=== PATIENT | female | born 1960 | race Caucasian/White ===

== ENCOUNTER → 2017-11-28 11:34 | Outpatient (CLI) | payer MEDICARE, SELFPAY ==
[2017-11-28 13:22] LABS: Basophils % 0.5 % (0.1-2.0); Eosinophils # 0.2 K/mm3 (0.0-0.4); Eosinophils % 2.8 % (0.1-12.0); Hematocrit 42.7 % (37.0-47.0); Hemoglobin 13.6 g/dL (12.2-16.2); Lymphocytes # 1.6 K/mm3 (0.7-4.5); Lymphocytes % 26.4 K/mm3 (10-50); Mean Corpuscular HGB Conc 31.9 g/dL (31.8-35.4); Mean Corpuscular Hemoglobin 29.8 pg (27.0-31.2); Mean Corpuscular Volume 93.4 fl (81-99); Mean Platelet Volume 6.9 fl (7.4-10.4); Monocytes # 0.3 K/mm3 (0.1-1.0); Monocytes % 5.5 % (1.7-9.3); Neutrophils # 3.8 K/mm3 (1.8-7.8); Neutrophils % 64.8 % (37.0-80.0); Platelet Count 283 K/mm3 (142-424); Red Blood Count 4.57 M/mm3 (4.20-5.40); Red Cell Distribution Width 12.8 % (11.5-17.5); White Blood Count 5.9 K/mm3 (4.8-10.8)
[2017-11-28 14:19] LABS: Alanine Aminotransferase 23 U/L (12-78); Albumin Level 3.8 gm/dL (3.4-5.0); Albumin/Globulin Ratio 1.3 (1.1-1.8); Alkaline Phosphatase 114 U/L (46-116); Anion Gap 9.7 mEq/L (5-15); Aspartate Amino Transferase 16 U/L (15-37); Bilirubin,Total 0.4 mg/dL (0.2-1.0); Blood Urea Nitrogen 9 mg/dL (7-18); Calcium 8.7 mg/dL (8.5-10.1); Carbon Dioxide 33 mmol/L (21.0-32.0); Chloride 103 mmol/L (98-107); Chol/HDL Ratio 3.8 (1-3.5); Cholesterol 248 mg/dL (140-200); Creatinine,Serum 0.93 mg/dL (0.55-1.02); Estimated Glomerular Filt Rate 63 ml/min (>60); GFR (African American) 76 ML/MIN (>60); Globulin 2.9 gm/dl (1.3-3.2); Glucose 93 mg/dL (74-106); HDL Cholesterol 66 mg/dL (29-89); LDL Cholesterol 147 mg/dL (0-130); Potassium 4.7 mmoL/L (3.5-5.1); Sodium 141 mmol/L (136-145); Total Protein,Serum 6.7 gm/dL (6.4-8.2); Triglycerides 176 mg/dL (30-200); VLDL Cholesterol 35 mg/dL (0-40)
[2017-11-29 18:30] LABS: Vitamin B12 414 pg/mL (232-1245); Vitamin D 25 Hydroxy 50.2 ng/mL (30.0-100.0)
== END ==
PROVIDERS: PCP Nurse Practitioner Family; Visit Provider Nurse Practitioner Family
DX: Z00.00 Encounter for general adult medical examination without abnormal findings (principal); R53.83 Other fatigue
CPT/HCPCS: 36415; 80053; 80061; 82607; 82652; 84443; 85025

== ENCOUNTER → 2019-02-19 07:30 | Outpatient (CLI) | payer MEDICARE, OTHER, SELFPAY ==
[2019-02-19 14:11] LABS: Basophils % 0.5 % (0.1-2.0); Eosinophils # 0.2 K/mm3 (0.0-0.4); Eosinophils % 2.7 % (0.1-12.0); Hemoglobin 14.5 g/dL (12.2-16.2); Lymphocytes # 1.9 K/mm3 (0.7-4.5); Lymphocytes % 31.3 % (10-50); Mean Corpuscular Hemoglobin 30.8 pg (27.0-31.2); Mean Corpuscular Volume 93.4 fl (81-99); Monocytes # 0.5 K/mm3 (0.1-1.0); Neutrophils # 3.4 K/mm3 (1.8-7.8); Neutrophils % 57.5 % (37.0-80.0); Platelet Count 332 K/mm3 (142-424); Red Blood Count 4.71 M/mm3 (4.20-5.40); Red Cell Distribution Width 12.8 % (11.5-17.5)
[2019-02-19 14:35] LABS: Albumin Level 3.9 gm/dL (3.4-5.0); Albumin/Globulin Ratio 1.3 (1.1-1.8); Anion Gap 12.4 mEq/L (5-15); Aspartate Amino Transferase 12 U/L (15-37); Bilirubin,Total 0.7 mg/dL (0.2-1.0); Blood Urea Nitrogen 15 mg/dL (7-18); Calcium 8.9 mg/dL (8.5-10.1); Carbon Dioxide 27 mmol/L (21.0-32.0); Chloride 105 mmol/L (98-107); Chol/HDL Ratio 3.7 (1-3.5); Cholesterol 238 mg/dL (140-200); Creatinine,Serum 1.01 mg/dL (0.55-1.02); Estimated Glomerular Filt Rate 56 ml/min (>60); GFR (African American) 68 ML/MIN (>60); Globulin 2.9 gm/dl (1.3-3.2); Glucose 95 mg/dL (74-106); HDL Cholesterol 65 mg/dL (29-89); LDL Cholesterol 161 mg/dL (0-130); Potassium 4.4 mmoL/L (3.5-5.1); Sodium 140 mmol/L (136-145); Total Protein,Serum 6.8 gm/dL (6.4-8.2); Triglycerides 60 mg/dL (30-200); VLDL Cholesterol 12 mg/dL (0-40)
[2019-02-19 14:49] LABS: Alanine Aminotransferase 19 U/L (12-78); Alkaline Phosphatase 112 U/L (46-116)
== END ==
PROVIDERS: PCP Internal Medicine Adolescent Medicine; Visit Provider Internal Medicine Adolescent Medicine
DX: Z00.00 Encounter for general adult medical examination without abnormal findings (principal); Z85.528 Personal history of other malignant neoplasm of kidney; Z79.899 Other long term (current) drug therapy
CPT/HCPCS: 36415; 80053; 80061; 85025

== ENCOUNTER → 2019-05-03 13:57 | Outpatient (CLI) | payer MEDICARE, OTHER, SELFPAY ==
--- NOTE | 2019-05-03 14:06 | XR_ITS ---
XR ankle wt bearing LT min 3V HISTORY: ITS.REASON: pain ORDERING PHYSICIAN: Mine Dominguez DPM PATIENT AGE: 58 years Comparison: None FINDINGS: Mild hypertrophic changes are present at the distal aspect of the medial malleolus and at the distal fibula. No fracture or dislocation. IMPRESSION: Mild degenerative changes
--- NOTE | 2019-05-03 14:06 | XR_ITS ---
XR ankle wt bearing RT min 3V HISTORY: ITS.REASON: pain ORDERING PHYSICIAN: Mine Dominguez DPM PATIENT AGE: 58 years Comparison: None FINDINGS: No fracture or dislocation. No lytic or blastic change. There is normal mineralization.. The joint spaces are well-preserved. No significant degenerative/arthritic changes. No erosive changes evident. There is a prominent posterior talar process could result in impingement symptomatology IMPRESSION: Prominent posterior talar process otherwise negative
--- NOTE | 2019-05-03 14:06 | XR_ITS ---
XR foot wt bearing LT 3V HISTORY: ITS.REASON: pain ORDERING PHYSICIAN: Mine Dominguez DPM PATIENT AGE: 58 years COMPARISON: None FINDINGS: There are mild osteoarthritic changes of the first metatarsal phalangeal joint with mild prominence of the soft tissues and mild bony hypertrophy at the distal aspect of the first metatarsal. Mild hypertrophy of the talonavicular joint dorsally. No fracture or dislocation. 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
--- NOTE | 2019-05-03 14:06 | XR_ITS ---
XR foot wt bearing RT 3V HISTORY: ITS.REASON: pain ORDERING PHYSICIAN: Mine Dominguez DPM PATIENT AGE: 58 years COMPARISON: None FINDINGS: There are mild osteoarthritic changes at the first metatarsophalangeal joint. No fracture or dislocation evident. There is a prominent posterior talar process which is nonspecific but can result in posterior ankle impingement. Mild hypertrophic changes involve the navicular IMPRESSION: 1. No acute finding. 2. Mild degenerative changes with prominent posterior talar process noted
== END ==
PROVIDERS: PCP Internal Medicine Adolescent Medicine; Visit Provider Podiatrist
DX: M79.672 Pain in left foot (principal); M79.671 Pain in right foot
CPT/HCPCS: 73610; 73630

== ENCOUNTER → 2019-06-04 15:39 | Outpatient (CLI) | payer MEDICARE, OTHER, SELFPAY ==
[2019-06-04 16:06] LABS: Basophils % 0.2 % (0.1-2.0); Eosinophils # 0.1 K/mm3 (0.0-0.4); Eosinophils % 1.3 % (0.1-12.0); Hematocrit 43.6 % (37.0-47.0); Lymphocytes % 30.9 % (10-50); Mean Corpuscular HGB Conc 32.1 g/dL (31.8-35.4); Mean Corpuscular Hemoglobin 30.8 pg (27.0-31.2); Mean Corpuscular Volume 95.9 fl (81-99); Monocytes # 0.4 K/mm3 (0.1-1.0); Neutrophils # 3.9 K/mm3 (1.8-7.8); Neutrophils % 61.6 % (37.0-80.0); Platelet Count 323 K/mm3 (142-424); Red Blood Count 4.54 M/mm3 (4.20-5.40); Red Cell Distribution Width 13.3 % (11.5-17.5); White Blood Count 6.4 K/mm3 (4.8-10.8)
[2019-06-04 20:45] LABS: Alanine Aminotransferase 25 U/L (12-78); Albumin Level 3.9 gm/dL (3.4-5.0); Albumin/Globulin Ratio 1.4 (1.1-1.8); Alkaline Phosphatase 99 U/L (46-116); Anion Gap 11.5 mEq/L (5-15); Aspartate Amino Transferase 18 U/L (15-37); Bilirubin,Total 0.7 mg/dL (0.2-1.0); Blood Urea Nitrogen 11 mg/dL (7-18); Calcium 9.2 mg/dL (8.5-10.1); Carbon Dioxide 32 mmol/L (21.0-32.0); Chloride 103 mmol/L (98-107); Creatinine,Serum 1.01 mg/dL (0.55-1.02); Estimated Glomerular Filt Rate 56 ml/min (>60); Free Thyroxine Index 2.9 ug/dL (5.93-13.13); GFR (African American) 68 ML/MIN (>60); Globulin 2.8 gm/dl (1.3-3.2); Glucose 78 mg/dL (74-106); Potassium 4.5 mmoL/L (3.5-5.1); Sodium 142 mmol/L (136-145); T4 (Thyroxine) 8.5 ug/dl (4.7-13.3); Thyroid Stimulating Hormone 0.67 uIU/ml (0.358-3.740); Total Protein,Serum 6.7 gm/dL (6.4-8.2); Triiodothryronine (T3) Uptake 34 % (31-39)
== END ==
PROVIDERS: Visit Provider Internal Medicine Adolescent Medicine
DX: R63.4 Abnormal weight loss (principal); R05 Cough; R10.84 Generalized abdominal pain; Z86.11 Personal history of tuberculosis
CPT/HCPCS: 36415; 80053; 84436; 84443; 84479; 85025

== ENCOUNTER → 2019-06-07 09:38 | Outpatient (CLI) | payer MEDICARE, OTHER, SELFPAY ==
--- NOTE | 2019-06-07 09:56 | CT_ITS ---
CT chest w con HISTORY: 30 LB weight loss, history of kidney cancer, cough, pain, ITS.REASON: WEIGHT LOSS,COUGH,H/O TB ORDERING PHYSICIAN: Tim Garcia MD PATIENT AGE: 58 years COMPARISON: None Technique: Contrast Used:75ml Optiray 350 Axial images were obtained. Sagittal, and coronal reformatted images are also generated and reviewed. All CT scans at the facility use one or more dose reduction, viz: automated exposure control, ma/kV adjustment per patient size (including targeted exams where dose is matched to indication, i.e. head), or iterative reconstruction technique. FINDINGS: No mediastinal or hilar mass or adenopathy. No evidence of aortic aneurysm, dissection, or central pulmonary embolus. There are mild centrilobular emphysematous changes. Scattered areas of scarring are noted. There is a 5 mm noncalcified nodule along the right minor fissure anteriorly. 3 mm noncalcified nodule right middle lobe laterally. There are atelectatic or fibrotic changes in the right lung base posteriorly. Minimal nodularity noted along the right major fissure There is a 7 mm nodule along the left major fissure superiorly with somewhat ill-defined margins. There is a calcified granuloma in the left lower lobe superior segment and within the lingula. No effusions or infiltrates. No acute bony anomalies. IMPRESSION: 1. Centrilobular emphysema. 2. There are scattered bilateral pulmonary nodular opacities the largest along the left major fissure superiorly at 7 mm. Probably benign. Recommend 6 month follow-up to confirm stability in this high-risk patient.
--- NOTE | 2019-06-07 09:56 | CT_ITS ---
CT abdomen pelvis wo/w con CLINICAL INDICATION: 30 pound weight loss, history of kidney cancer with nephrectomy. ITS.REASON: WEIGHT LOSS,ABD PAIN ORDERING PHYSICIAN: Tim Garcia MD PATIENT AGE: 58 years COMPARISON: None TECHNIQUE: Contrast Used:75ml Optiray 350 Oral Contrast: 450ml Redicat Axial images obtained without and with contrast with sagittal and coronal reformats. All CT scans at the facility use one or more dose reduction, viz: automated exposure control, ma/kV adjustment per patient size (including targeted exams where dose is matched to indication, i.e. head), or iterative reconstruction technique. FINDINGS: There are no previous exams available for comparison. Prior cholecystectomy. There is a 4 mm isodensity in the left hepatic lobe superiorly and an additional 5 mm isodensity left hepatic lobe anteriorly. These are nonspecific and too small to characterize. There is mild prominence of both intra and extrahepatic biliary radicals. Common bile duct is mildly prominent measuring up to 9 mm. Pancreatic duct is also slightly prominent at 3.5 mm. There is some mild nodularity along the axillary region of the second portion of the duodenum. This is nonspecific and may be related to nondistention. A nodular lesion here is however not excluded. Spleen and adrenal glands are unremarkable. There is thickening of the gastric wall which may be due to nondistention or gastritis. Prior left nephrectomy. There is some soft tissue prominence to the left lateral aspect of the abdominal aorta near the nephrectomy bed. This measures 1.7 cm and could be related to some small lymph nodes or even postsurgical change. There is some calcification/surgical clips in this area as well. The right kidney has an unremarkable appearance. No intestinal obstruction or free air. No evidence of appendicitis or diverticulitis. Urinary bladder has an unremarkable appearance. No obvious pelvic mass or abnormal fluid collection. Degenerative disc disease is present at L3-L4 with sclerosis of the endplates along the right lateral aspect with mild lumbar scoliosis along with slight reversal of the lumbar lordosis. IMPRESSION: 1. Prior left nephrectomy. There is some nodularity noted in the retroperitoneum on the left which could be due to mildly prominent lymph nodes. Residual recurrent neoplasm is not excluded. If the patient has old films it is recommended they be submitted for comparison. 2. Prior cholecystectomy. There is mild prominence of the biliary tree. There is some nodularity at the ampulla region of the duodenum medially. A mass of the ampulla is not excluded. Consider MRI of the abdomen without and with contrast with MRCP for further evaluation. Old films would be helpful if available.
== END ==
PROVIDERS: PCP Internal Medicine Adolescent Medicine; Visit Provider Internal Medicine Adolescent Medicine
DX: R63.4 Abnormal weight loss (principal); R05 Cough; R10.84 Generalized abdominal pain; Z86.11 Personal history of tuberculosis
CPT/HCPCS: 71260; 74178; Q9967

== ENCOUNTER → 2019-06-09 08:45 | Outpatient (CLI) | payer MEDICARE, OTHER, SELFPAY ==
[2019-06-14 10:35] LABS: QuantiFERON-TB Gold Plus Positive (Negative)
== END ==
PROVIDERS: PCP Internal Medicine Adolescent Medicine; Visit Provider Internal Medicine Adolescent Medicine
DX: R63.4 Abnormal weight loss (principal); R10.84 Generalized abdominal pain; R05 Cough; Z86.11 Personal history of tuberculosis
CPT/HCPCS: 36415; 86480

== ENCOUNTER → 2019-06-10 08:43 | Outpatient (CLI) | payer MEDICARE, OTHER, SELFPAY ==
--- NOTE | 2019-06-10 09:04 | MR_ITS ---
MR abdomen wo/w con, MR 3-d myelogram/MRCP INDICATION: ITS.REASON: PANCREATIC MASS, 30 pound weight loss, history of renal cancer ORDERING PHYSICIAN: Tim Garcia MD PATIENT AGE: 58 years COMPARISON: 06/07/2019 TECHNIQUE: Multiplanar multiecho sequences are performed without and with contrast with dynamic postcontrast enhanced images. MRCP protocol also utilized. FINDINGS: There is a moderate degree of motion artifact which does somewhat obscure fine detail. Previous CT scan demonstrated prominence of the biliary tree both intra and extrahepatic biliary radicals with a questionable lesion at the annular portion of the common bile duct.. Postcholecystectomy changes. The liver, spleen, right kidney, and adrenal glands have an unremarkable appearance. There are solitary right kidney with postnephrectomy changes on the left. Some nodularity once again noted in the left periaortic region suggesting small lymph nodes.. No obvious pancreatic mass. There is mild degree of motion artifact somewhat obscuring fine detail. There is prominence of the common hepatic duct measuring up to 11 mm and common bile duct measuring up to 12 mm. The common bile duct however does taper distally. The pancreatic duct is upper limits of normal at 3 mm. No obvious nodularity noted at the descending portion of the duodenum. IMPRESSION: 1. No obvious pancreatic mass. 2. Status post cholecystectomy with mild dilatation of the intrahepatic biliary radicals as well as prominent common bile duct and common hepatic duct. Pancreatic duct is upper limits of normal. No obvious retained ductal stones or malignant appearing strictures of the common bile duct. There was some question of nodularity along the medial aspect of the second portion of the duodenum on the CT scan not redemonstrated on MRI. 3. There is some mild nodularity in the left periaortic region suggesting small lymph nodes as seen on the CT scan
[2019-06-10 09:13] LABS: Blood Urea Nitrogen 14 mg/dL (7-18); Creatinine,Serum 1.02 mg/dL (0.55-1.02); Estimated Glomerular Filt Rate 56 ml/min (>60); GFR (African American) 68 ML/MIN (>60)
[2019-06-10 10:13] LABS: Alanine Aminotransferase 25 U/L (12-78); Albumin Level 4.2 gm/dL (3.4-5.0); Alkaline Phosphatase 117 U/L (46-116); Amylase 65 U/L (25-115); Aspartate Amino Transferase 18 U/L (15-37); Bilirubin,Direct 0.2 mg/dL (0.0-0.2); Bilirubin,Indirect 0.4 mg/dL (0.0-0.9); Bilirubin,Total 0.6 mg/dL (0.2-1.0); Lipase 150 u/L (73-393); Total Protein,Serum 7.5 gm/dL (6.4-8.2)
[2019-06-11 12:36] LABS: CA 19-9 6 U/mL (0-35)
== END ==
PROVIDERS: Nurse Practitioner Family; PCP Internal Medicine Adolescent Medicine; Visit Provider Internal Medicine Adolescent Medicine
DX: G89.3 Neoplasm related pain (acute) (chronic) (principal)
CPT/HCPCS: 36415; 74183; 76376; 80076; 82150; 82565; 83690; 84520; 86316; A9576

== ENCOUNTER → 2019-06-14 12:41 | Outpatient (POV) | payer MEDICARE, OTHER, SELFPAY | PROVIDERS: PCP Internal Medicine Adolescent Medicine; Visit Provider Nurse Practitioner Family | DX: Z00.00 Encounter for general adult medical examination without abnormal findings (principal) ==

== ENCOUNTER → 2019-09-17 08:10 | Outpatient (CLI) | payer MEDICARE, OTHER, SELFPAY ==
[2019-09-17 08:37] LABS: Blood Urea Nitrogen 13 mg/dL (7-18); Creatinine,Serum 0.93 mg/dL (0.55-1.02); Estimated Glomerular Filt Rate 62 ml/min (>60); GFR (African American) 75 ML/MIN (>60)
--- NOTE | 2019-09-17 08:55 | MR_ITS ---
PROCEDURE: MR FOOT LT WO/W CON CLINICAL INDICATION: left foot pain, surgical planning Posterior tibial tendon dysfunction, inflammation, tendinopathy COMPARISON: 05/03/2019 TECHNIQUE: Routine multiplanar multi echo sequences are performed without and with gadolinium enhancement. FINDINGS: There is mild hallux valgus with osteoarthritic change of the 1st MTP joint. No evidence of tear of the posterior tibialis tendon. There is a type 1 os navicularis with a portion of the tendon inserting on the os navicular. There is a small amount fluid between the os in the body proper of the navicular. Slight increased T2 signal is also present within the os navicular. There is mild amount of fluid at the tendon sheath of the flexor digitorum longus and posterior tibialis just superior to the level of the ankle joint.. There is a moderate amount of fluid around the flexor hallucis longus at the level of the ankle joint. Fluid is also present along the posterior aspect of the ankle joint. The Achilles tendon, and peroneal tendons have an unremarkable appearance. The tibial fibular ligaments and talofibular ligaments and deltoid ligament has an unremarkable appearance. Small amount of fluid is present along the talonavicular joint anteriorly and there is a small amount fluid in the anterior aspect of the ankle joint. Mild osteoarthritic changes are present at the talonavicular joint. There is mild pes planus. IMPRESSION: 1. Mild hallux valgus with osteoarthritis of the 1st MTP joint. Osteoarthritic changes are present at the talonavicular joint. There is a small amount fluid in the ankle joint. 2. There is slight increased T2 signal of the os naviculare with a small amount fluid between the os and the body proper of the navicular. These findings could indicate os navicular syndrome however, these findings are very subtle and could even be incidental findings. Please correlate with clinical parameters.. 3. Fluid at the tendon sheath of the posterior tibialis and flexor digitorum longus as well as the flexor hallucis longus indicating tenosynovitis. Dictated by: Javier Arora MD 09/18/2019 06:45 Electronically signed by Javier Arora MD in [place] 09/19/2019 08:14
== END ==
PROVIDERS: PCP Internal Medicine Adolescent Medicine; Visit Provider Podiatrist
DX: M20.11 Hallux valgus (acquired), right foot (principal); M20.12 Hallux valgus (acquired), left foot; M20.5X2 Other deformities of toe(s) (acquired), left foot; M21.41 Flat foot [pes planus] (acquired), right foot; M21.42 Flat foot [pes planus] (acquired), left foot; M76.822 Posterior tibial tendinitis, left leg; M79.671 Pain in right foot; M79.672 Pain in left foot
CPT/HCPCS: 36415; 73720; 82565; 84520; A9576

== ENCOUNTER 2019-12-20 16:30 | Outpatient (RCR) | payer MEDICARE, OTHER, MEDICAID, SELFPAY ==
--- NOTE | 2019-12-06 17:42 | [facility].PTOPEV ---
PT Outpatient Evaluation Rehab PT Outpatient Evaluation Start: 12/06/19 17:04 Freq: Status: Active Protocol: Document 12/06/19 17:04 PDESEROUX (Rec: 12/06/19 17:42 PDESEROUX [id number]) Electronically Signed By Manoj Berg, PT 12/06/19 17:04 Outpatient Therapy Subjective History Subjective History Pt. is a 58 year old female who presents to outpatient PT for complaints of chronic w/ acute exacerbations and intermittent LB and LLE P! of insidious onset 6 months ago. Pt. reports having two exacerbations during the 6 month period where symptoms shot down my left leg. Pt. reports the most recent exacerbation less than 2 weeks ago prompted pt. to seek her PCP. Pt. currently reports almost complete symptom relief post steroid pack(Prednisone per pt. report), but is afraid it will come back. Recent diagnostic imaging positive for partial herniated discs and DDD per pt. report. Pt. reported radicular symptoms inferior to L knee, but not below. Current medications include Celexa, Remeron, Crestor, and Gabapentin. PMH includes fractured L3/L4/L5 in 1984, lumbar DDD, section, Nephrectomy, kidney and bladder cancer, and Hypercholesterolemia. Chief Complaint Pain,Paresthesia Symptom Type Ache,Sharp,Burning,Numbness Symptoms Relieved By Rest/Positioning,Heat Symptoms Aggravated By Prone,Bending/Stooping, Physical Activity,Twisting, Walking,Lifting Prior Functional Limitations None Current Functional Limitations Lifting,Housework,Squatting, Recreation Activity,Walking, Balance Symptom Description Intermittent Level of pain today (0-10) 0 Pain scale - at its best (0-10) 0 Pain scale - at its worst (0-10) 10 Lumbopelvic Eval Posture Thoracic Spine Po
== END 2020-01-03 17:00 | disposition home or self-care (01) ==
LOC: PT.CARL 16:30
PROVIDERS: PCP Internal Medicine Adolescent Medicine; Visit Provider Internal Medicine Adolescent Medicine
DX: M51.36 Other intervertebral disc degeneration, lumbar region (principal)
CPT/HCPCS: 97110; 97163

== ENCOUNTER → 2020-01-31 09:02 | Outpatient (CLI) | payer MEDICARE, OTHER, SELFPAY ==
--- NOTE | 2020-01-31 09:11 | XR_ITS ---
PROCEDURE: XR HAND RT MIN 3V CLINICAL INDICATION: finger surgery 01/27/2020, xrays in splint COMPARISON: XR HAND RT MIN 3V from 01/27/2020 FINDINGS: No fracture or dislocation. There has been reduction of previous dorsal dislocation at the 5th distal interphalangeal joint. Small bone density consistent with avulsion fracture fragment is seen displaced into the radial soft tissues. There is mild multi joint osteoarthritis throughout the hand. No lytic or blastic change. There is normal mineralization. IMPRESSION: Successful reduction of previous dislocation at distal interphalangeal joint 5th digit. Small avulsion fracture fragment remains displaced in the adjacent soft tissues. Dictated by: Keith Kwan 01/31/2020 11:12 Electronically signed by Keith Kwan in [facility] 01/31/2020 11:12
== END ==
PROVIDERS: PCP Internal Medicine Adolescent Medicine; Visit Provider Orthopaedic Surgery
DX: S63.29 Dislocation of distal interphalangeal joint of finger; S61.209A Unspecified open wound of unspecified finger without damage to nail, initial encounter
CPT/HCPCS: 73130

== ENCOUNTER → 2020-02-21 08:52 | Outpatient (CLI) | payer MEDICARE, OTHER, SELFPAY ==
--- NOTE | 2020-02-21 08:57 | XR_ITS ---
PROCEDURE: XR FINGER RT MIN 2V CLINICAL INDICATION: sp open reduction DIP dislocation, sx 01/27/2020 COMPARISON: FINL1 [id number] ([id number] VIEWS from 05/21/2016 XR FINGER RT MIN 2V from 01/27/2020 XR HAND RT MIN 3V from 01/27/2020 XR HAND RT MIN 3V from 01/31/2020 FINDINGS: There is minimal calcification noted along the radial aspect of the DIP joint of the 5th finger which could be due to small avulsion fracture. This is not significantly changed. No evidence of dislocation. IMPRESSION: Normal alignment. No evidence of dislocation. No change possible small avulsion fracture at the DIP joint radially Dictated by: Javier Arora MD 02/21/2020 09:41 Electronically signed by Javier Arora MD in [facility] 02/21/2020 09:41
== END ==
PROVIDERS: PCP Internal Medicine Adolescent Medicine; Visit Provider Orthopaedic Surgery
DX: S63.29 Dislocation of distal interphalangeal joint of finger; Z09 Encounter for follow-up examination after completed treatment for conditions other than malignant neoplasm; S61.209A Unspecified open wound of unspecified finger without damage to nail, initial encounter
CPT/HCPCS: 73140

== ENCOUNTER → 2020-04-07 07:06 | Outpatient (CLI) | payer MEDICARE, OTHER, SELFPAY ==
[2020-04-07 09:04] LABS: Chloride 104 mmol/L (98-107); Potassium 4.6 mmoL/L (3.5-5.1); Sodium 139 mmol/L (136-145)
[2020-04-07 09:07] LABS: Alanine Aminotransferase 9 U/L (12-78); Albumin Level 3.9 g/dl (3.5-5.0); Albumin/Globulin Ratio 1.5 (1.1-1.8); Alkaline Phosphatase 98 U/L (38-126); Anion Gap 5.6 mEq/L (5-15); Aspartate Amino Transferase 21 U/L (14-36); Bilirubin,Total 0.9 mg/dl (0.2-1.3); Blood Urea Nitrogen 13 mg/dl (7-17); Carbon Dioxide 34 mmol/L (22.0-30.0); Cholesterol 122 mg/dl (140-200); Estimated Glomerular Filt Rate 64 ml/min (>60); GFR (African American) 78 ML/MIN (>60); Globulin 2.6 g/dL (1.3-3.2); Total Protein,Serum 6.5 g/dl (6.3-8.2); Triglycerides 61 mg/dl (30-150); VLDL Cholesterol 12 mg/dL (0-40)
[2020-04-07 09:08] LABS: Calcium 9.2 mg/dl (8.4-10.2); Chol/HDL Ratio 1.9 (1-3.5); Glucose 90 mg/dl (74-100); HDL Cholesterol 64 mg/dl (40-60)
[2020-04-07 09:18] LABS: Direct LDL Cholesterol 60.55 mg/dL (100-129)
== END ==
PROVIDERS: Visit Provider Internal Medicine Adolescent Medicine
DX: E78.2 Mixed hyperlipidemia (principal)
CPT/HCPCS: 36415; 80053; 80061

== ENCOUNTER → 2020-08-18 08:01 | Outpatient (CLI) | payer MEDICARE, OTHER, SELFPAY ==
--- NOTE | 2020-08-18 | CT_ITS ---
PROCEDURE: CT LUNG SCREENING CLINICAL INDICATION: NICOTINE DEP current smoker 40 pack year smoking history copd hx kidney ca no prior LDLS prior chest w, 06/07/19 COMPARISON: CT ABDWW CT abdomen wo/w con from 06/07/[address] abdomen wo/w con from 06/07/[address] chest w con from 06/07/2019 TECHNIQUE: The exam was performed on a [employer] Speed [address] scanner using 2.90 mGy CTDI. A low dose helical CT CHEST was performed on a multi-detector scanner. All CT scans at the facility use one or more dose reduction, viz: automated exposure control, ma/kV adjustment per patient size (including targeted exams where dose is matched to indication, i.e. head), or iterative reconstruction technique. The LDCT was performed in a facility that meets the criteria for the screening program. Data regarding this exam was submitted to ACR which is an approved registry. The order for this exam indicates that it came as a result of a lung cancer screening counseling shard decision-making visit that included all the elements required of such a visit including smoking cessation. The radiologist interpreting this exam meets the CMS criteria for the LDCT lung cancer screening program. The exam is reported using the Lung-RADS classification scale and reported to the ACR registry. NOTE: This study was performed for the specific purposes of lung cancer screening and is not an alternative to diagnostic chest CT. RADIATION DOSE: CTDI vol(CT dose Index-volume) = 2.90mG DLP (Dose Length Product) = 125.85 mGcm FINDINGS: COPD with centrilobular emphysema. There is a stable fissural nodule in the right minor fissure at 5 mm. Linear density present in the right lung base posteriorly consistent with an area of scarring which is slightly worse compared to the previous exam. There is a 6 mm noncalcified nodule in the left major fissure unchanged. Calcified granuloma is present in the left lower lobe and in the lingula. OTHER FINDINGS: Calcification noted in the retroperitoneum on the left along with the lobular soft tissue density not significantly changed. Prior left-sided nephrectomy. IMPRESSION: Lung-RADS Category 2 Benign Appearance or Behavior Follow-up: Continue annual screening with LDCT in 12 months Dictated by: Javier Arora MD 08/23/2020 16:16 Javier Arora MD in [place] 08/23/2020 16:16
== END ==
PROVIDERS: PCP Internal Medicine Adolescent Medicine; Visit Provider Internal Medicine Adolescent Medicine
DX: Z87.891 Personal history of nicotine dependence (principal); Z12.2 Encounter for screening for malignant neoplasm of respiratory organs

== ENCOUNTER → 2021-01-02 11:08 | Outpatient (CLI) | payer MEDICARE, OTHER, SELFPAY ==
[2021-01-03 11:38] LABS: Basophils % 0.5 % (0.1-2.0); Eosinophils # 0.1 K/mm3 (0.0-0.4); Eosinophils % 1.3 % (0.1-12.0); Hematocrit 40.5 % (37.0-47.0); Hemoglobin 12.7 g/dL (12.2-16.2); Lymphocytes # 2.5 K/mm3 (0.7-4.5); Lymphocytes % 29.4 % (10-50); Mean Corpuscular HGB Conc 31.3 g/dL (31.8-35.4); Mean Corpuscular Hemoglobin 30.5 pg (27.0-31.2); Mean Corpuscular Volume 97.2 fl (81-99); Mean Platelet Volume 8.9 fl (7.4-10.4); Monocytes # 0.8 K/mm3 (0.1-1.0); Monocytes % 8.9 % (1.7-9.3); Neutrophils % 59.9 % (37.0-80.0); Platelet Count 303 K/mm3 (142-424); Red Blood Count 4.17 M/mm3 (4.20-5.40); Red Cell Distribution Width 13.7 % (11.5-17.5); White Blood Count 8.4 K/mm3 (4.8-10.8)
[2021-01-03 13:47] LABS: 25-OH Vitamin D, Total 45.1 ng/mL (30-100)
[2021-01-03 14:57] LABS: Alanine Aminotransferase 18 U/L (12-78); Albumin Level 4.1 g/dl (3.5-5.0); Albumin/Globulin Ratio 1.6 (1.1-1.8); Alkaline Phosphatase 78 U/L (38-126); Anion Gap 9.6 mEq/L (5-15); Aspartate Amino Transferase 32 U/L (14-36); Bilirubin,Total 0.5 mg/dl (0.2-1.3); Blood Urea Nitrogen 14 mg/dl (7-17); Calcium 9.4 mg/dl (8.4-10.2); Carbon Dioxide 29 mmol/L (22.0-30.0); Chloride 104 mmol/L (98-107); Chol/HDL Ratio 2.3 (1-3.5); Cholesterol 145 mg/dl (140-200); Estimated Glomerular Filt Rate 64 ml/min (>60); GFR (African American) 78 ML/MIN (>60); Globulin 2.5 g/dL (1.3-3.2); Glucose 79 mg/dl (74-100); HDL Cholesterol 62 mg/dl (40-60); Potassium 4.6 mmoL/L (3.5-5.1); Sodium 138 mmol/L (136-145); Total Protein,Serum 6.6 g/dl (6.3-8.2); Triglycerides 96 mg/dl (30-150); VLDL Cholesterol 19 mg/dL (0-40)
[2021-01-03 15:08] LABS: Direct LDL Cholesterol 63.98 mg/dL (100-129)
[2021-01-03 15:14] LABS: Free Thyroxine Index 2.7 ug/dL (5.93-13.13); T4 (Thyroxine) 8.2 ug/dl (5.53-11.0); Triiodothryronine (T3) Uptake 33 % (23.5-40.5)
[2021-01-03 15:28] LABS: Thyroid Stimulating Hormone 1.96 uIU/mL (0.465-4.68)
[2021-01-03 15:45] LABS: Vitamin B12 394 pg/mL (239-931)
== END ==
PROVIDERS: Visit Provider Internal Medicine Adolescent Medicine
DX: R63.4 Abnormal weight loss (principal); E78.2 Mixed hyperlipidemia
CPT/HCPCS: 80053; 80061; 82306; 82607; 84436; 84443; 84479; 85025

== ENCOUNTER 2021-05-31 08:58 | Outpatient (CLI) | payer MEDICARE, OTHER, SELFPAY ==
[2021-05-31 10:00] VITALS: BP 108/56; PULSE 61; RESP 18; O2SAT 92
[2021-05-31 11:34] VITALS: BP 106/58; PULSE 72; RESP 16; TEMP 37.1; O2SAT 92
--- NOTE | 2021-05-31 11:34 | PC.NURSE ---
Pt tolerated infusion well. Follow-up monitoring raised no concern. V/S remained WNL. Pt D/C'd home at this time.
== END 2021-05-31 11:35 | disposition home or self-care (01) ==
PROVIDERS: PCP Internal Medicine Adolescent Medicine; Visit Provider Family Medicine
DX: U07.1 COVID-19 (principal)
CPT/HCPCS: 96365

== ENCOUNTER → 2021-07-16 16:02 | Outpatient (CLI) | payer MEDICARE, OTHER, SELFPAY ==
--- NOTE | 2021-07-16 16:03 | MM_ITS ---
PROCEDURE: MM DIG SCREENING MAMM BI W/CAD Digital Breast Tomosynthesis Included CLINICAL INDICATION: SCREENING COMPARISON: No exams were available for comparison TECHNIQUE: Standard CC and MLO images and 3D Tomosynthesis was obtained. R2 CAD reviewed. FINDINGS: The breasts are extremely dense which lowers the sensitivity of mammography. No malignant appearing mass or malignant-appearing microcalcification. Benign-appearing nodular density is present in the left axillary region at 3 mm and may be due to a small lymph node well-circumscribed. There is a benign-appearing calcification in the left axillary region and upper aspect of the left breast. There is mild bilateral skin thickening IMPRESSION: There is mild bilateral skin thickening. This is nonspecific. No convincing evidence of malignancy. BI-RAD Category: 2 Benign Finding FOLLOW-UP: 1 YR 1 Year Follow-up (A letter has been sent to the patient regarding results of the study.) Dictated by: Javier Arora MD 07/27/2021 12:46 Javier Arora MD in [place] 07/27/2021 12:46
== END ==
PROVIDERS: PCP Internal Medicine Adolescent Medicine; Visit Provider Internal Medicine Adolescent Medicine
DX: Z12.31 Encounter for screening mammogram for malignant neoplasm of breast (principal)
CPT/HCPCS: 77063; 77067

== ENCOUNTER → 2021-08-31 07:50 | Outpatient (CLI) | payer MEDICARE, OTHER, SELFPAY ==
--- NOTE | 2021-08-31 07:52 | CT_ITS ---
PROCEDURE: CT LUNG SCREENING CLINICAL INDICATION: H/O NICOTINE DEPENDENCE Smoker half pack for 35 years. COMPARISON: CT CT CHEST W CON from 06/07/[address] ABDOMEN PELVIS WO/W CON from 06/07/2019 MR MR ABDOMEN WO/W CON from 06/10/[address] LUNG SCREENING from 08/18/2020 TECHNIQUE: The exam was performed on a [employer] Speed [address] scanner using 2.90 mGy CTDI. A low dose helical CT CHEST was performed on a multi-detector scanner. All CT scans at the facility use one or more dose reduction, viz: automated exposure control, ma/kV adjustment per patient size (including targeted exams where dose is matched to indication, i.e. head), or iterative reconstruction technique. The LDCT was performed in a facility that meets the criteria for the screening program. Data regarding this exam was submitted to ACR which is an approved registry. The order for this exam indicates that it came as a result of a lung cancer screening counseling shard decision-making visit that included all the elements required of such a visit including smoking cessation. The radiologist interpreting this exam meets the CMS criteria for the LDCT lung cancer screening program. The exam is reported using the Lung-RADS classification scale and reported to the ACR registry. NOTE: This study was performed for the specific purposes of lung cancer screening and is not an alternative to diagnostic chest CT. RADIATION DOSE: CTDI vol(CT dose Index-volume) = 2.90mG DLP (Dose Length Product) = mGcm FINDINGS: There is a 2 millimeter nodule within the lateral segment right middle lobe, stable since 06/07/2019. There is right lower lobe subsegmental atelectasis. There is centrilobular emphysema. Again identified are multiple granulomas in the left upper and lower lobes. There is subsegmental atelectasis in the left lower lobe. No other nodules are identified. There is tracheal calcification. Atherosclerosis. There is scoliosis. Cholecystectomy. Ssince the prior studies, there has been interval development haziness of the intra-abdominal fat in the left upper quadrant of uncertain significance. IMPRESSION: Lung-RADS Category 2 Benign Appearance or Behavior Follow-up: Continue annual annual screening with low-dose lung screening CT. New haziness of the intra-abdominal fat in the left upper quadrant. CT abdomen and pelvis with IV contrast is recommended for further evaluation to exclude intra-abdominal process such as malignancy. Dictated by: Florence Alicea MD 08/31/2021 08:51 Florence Alicea MD in [place] 08/31/2021 08:51
== END ==
PROVIDERS: PCP Internal Medicine Adolescent Medicine; Visit Provider Internal Medicine Adolescent Medicine
DX: Z87.891 Personal history of nicotine dependence (principal); Z12.2 Encounter for screening for malignant neoplasm of respiratory organs
CPT/HCPCS: 71271

== ENCOUNTER → 2022-09-27 14:39 | Outpatient (CLI) | payer MEDICARE, SELFPAY ==
--- NOTE | 2022-09-27 14:43 | CT_ITS ---
FINAL REPORT CLINICAL HISTORY: HX OF NICOTINE DEPENDENCE current smoker 1/2 ppd x40 years COMPARISON: 08/31/2021 FINDINGS: Axial images were obtained from the lung apex to the mid abdomen by computed tomography. Low-dose protocol was utilized. CTDl vol(mGy): 2.90 DLP (mGy-cm): 108.90 FINDINGS: There is no axillary adenopathy. There is no hilar or mediastinal adenopathy. The heart size is normal. There is no pericardial or pleural effusion. Limited images of the upper abdomen are unremarkable. Lung window images demonstrate mild emphysema and mild scarring. There are 2 nodules along the right major fissure measuring up to 3 mm. These appear stable. There is a stable nodule along the left major fissure. There are several calcified granulomas noted. In the anterior right mid lung there is a 5 mm nodule which is stable. There is a 2 mm lateral left lower lobe nodule on image 57 which is apparently new. There is a new lateral right lower lobe nodule measuring 3 mm seen on image 65. IMPRESSION: Lung RADS category 2. Recommend 12 month follow-up low-dose chest CT. Reviewed, Interpreted and Dictated by Landon Davenport III, MD Transcribed by Marycruz Shook Authenticated and [facility]
== END ==
PROVIDERS: PCP Internal Medicine Adolescent Medicine; Visit Provider Internal Medicine Adolescent Medicine
DX: Z87.891 Personal history of nicotine dependence (principal); Z12.2 Encounter for screening for malignant neoplasm of respiratory organs
CPT/HCPCS: 71271

== ENCOUNTER → 2023-07-02 15:16 | Outpatient (CLI) | payer MEDICARE, SELFPAY ==
--- NOTE | 2023-07-02 15:22 | XR_ITS ---
FINAL REPORT CLINICAL HISTORY: Mid to low back pain COMPARISON: None FINDINGS: 3 views of the thoracic spine were obtained. There is no fracture present. There is no malalignment. There is mild anterior osteophyte formation throughout the thoracic spine. 4 views of the lumbosacral spine were obtained. There is 20 degrees of lumbar scoliosis convex to the left. There is advanced disc space narrowing at L3-4. There is reversal of the lumbar lordosis centered at the L3-4 level. IMPRESSION: Degenerative changes without acute process. Reviewed, Interpreted and Dictated by Adan Webster MD Transcribed by Bina Garces Authenticated and [facility]
== END ==
LOC: RAD 15:17
PROVIDERS: PCP Internal Medicine Adolescent Medicine; Visit Provider Internal Medicine Adolescent Medicine
DX: M54.50 Low back pain, unspecified (principal); M47.9 Spondylosis, unspecified
CPT/HCPCS: 72084

== ENCOUNTER → 2023-07-11 08:13 | Outpatient (CLI) | payer MEDICARE, SELFPAY ==
--- NOTE | 2023-07-11 08:22 | MM_ITS ---
PROCEDURE INFORMATION: Exam: MG Bilateral Screening 3D Mammography Exam date and time: 07/11/2023 8:31 AM Age: 62 years old Clinical indication: Screening examination; No personal or family history of breast cancer TECHNIQUE: Imaging protocol: Bilateral Screening tomosynthesis and 2D mammography including computer-aided detection (CAD) when performed. COMPARISON: MG MM DIG SCREENING MAMM BI W/CAD 07/16/2021 4:03 PM FINDINGS: MAMMOGRAPHY: Breast composition: The breasts are extremely dense, which lowers the sensitivity of mammography. Mass: None. Architectural distortion: None. Calcifications: No suspicious calcifications. Asymmetric density: None. Skin thickening: None. Axillary adenopathy: None. IMPRESSION: No mammographic evidence of malignancy. Annual screening is recommended unless otherwise clinically indicated. ASSESSMENT: BI-RADS Category 1: Negative
== END ==
PROVIDERS: PCP Internal Medicine Adolescent Medicine; Visit Provider Internal Medicine Adolescent Medicine
DX: Z12.31 Encounter for screening mammogram for malignant neoplasm of breast (principal)
CPT/HCPCS: 77063; 77067

== ENCOUNTER 2023-09-08 11:56 | Emergency (ER) | payer MEDICARE, SELFPAY ==
[2023-09-08 12:05] VITALS: BP 101/76; PULSE 78; RESP 18; TEMP 36.8; O2SAT 100; BMI 17.1
--- NOTE | 2023-09-08 12:09 | XR_ITS ---
FINAL REPORT CLINICAL HISTORY: smashed index and middle finger in a door COMPARISON: 01/31/2020 FINDINGS: RIGHT HAND Three views demonstrate no acute fracture or dislocation. The visualized joint spaces are normally aligned. There is multijoint degenerative disease, similar to prior exam. The soft tissues are unremarkable. IMPRESSION: No acute bony abnormality. Reviewed, Interpreted and Dictated by Marleny Chiu MD Transcribed by Oliva Elkins Authenticated and [facility]
--- NOTE | 2023-09-08 12:22 | EXP.UTC ---
Discharge Plan Disposition Patient Disposition: Home, Self-Care Condition: Good Prescriptions Prescriptions: No Action rosuvastatin 10 mg tablet 10 mg PO DAILY Qty: 30 Patient Comments: TAKE 1 TABLET BY MOUTH AT BEDTIME ibuprofen 600 mg tablet PO Patient Comments: TAKE 1 TABLET BY MOUTH THREE TIMES DAILY AFTER ondansetron 4 mg tablet,disintegrating 4 mg PO DAILY PRN (Reason: nausea and vomiting) 5 Days Qty: 20 0RF citalopram 40 MG tablet 40 mg PO DAILY gabapentin 800 MG tablet 800 mg PO QID albuterol sulfate 200 PUFFS HFA aerosol inhaler 1 - 2 puffs IH Q6HP PRN (Reason: asthma) mirtazapine 15 mg tablet 15 mg PO DAILY Referrals Follow up/Referrals: Tim Garcia MD [Primary Care Provider] - See instructions Activity Restrictions/Add. Instructions Additional Instructions/Restrictions: Suture instructions: ?You have required stitches today. Please read the following instructions so you know how to care for them: ?1. Keep wound area dry for the first 24 hours. 2?? May clean gently with mild soap and water, after 48 hours to prevent crusting over suture knots. 3. You may shower if your provider gives permission but do not take a bath until the skin is healed.. 4. Never leave a wet dressing or Band-Aid on your stitches as this allows bacteria to reach the area and may cause infection. Band-aids can cause the wound to sweat and not recommended to wear for long periods of time Watch for signs of infection: ? Increasing redness, tenderness or warmth around the suture site ? Unusual swelling around the site ? Appearance of pus around each suture or any red streaks ? Fever If you develop any of the above signs or symptoms of infection, Follow up with Family Physician immediately 5. Suture removal in _10-12___days 6. Return to [facility] or follow up with family doctor for removal. This can be done by any medical provider dur?ing regular hours on Friday through Friday, by appointment. Call for appointment [facility] [phone] Clinical Impressions Clinical Impression: Injury of finger Qualifiers: Encounter type: initial encounter Laterality: right Qualified Code(s): S69.91XA - Unspecified injury of right wrist, hand and finger(s), initial encounter Instructions Patient Instructions: DI for Laceration Repair, DI for Laceration Repair -- Finger, How To Perform RICE (Rest, Ice, Compress, Elevate) Discharge ED Provider: Jerrica Carvalho [facility] [place] General Stated complaint: [id number], pain in Rt pointer/middle fing Mode of Arrival: Ambulatory Source of Information: Patient Limitations: No Limitations Time Seen by Provider: 09/08/23 12:22 Description of Symptoms (Recalled from Triage Doc. by RN): PATIENT STATES SHE SHUT CAR DOOR ON HER RIGHT HAND TODAY HEENT Symptoms (Recalled from RN notes): No Resp Symptoms (Recalled from RN notes): No Skin Symptoms (Recalled from RN notes): No MS Symptoms (Recalled from RN notes): Yes Functional Status (Recalled from RN notes): WNL History of Present Illness Provider Complaint: Patient states that she accidently shut her car door on her right hand earlier and caught her right index and middle finger causing bruising swelling and some cuts to the fingers and hurts when she moves them so she came in to get checked Related Data Home Medications Medication Instructions Recorded Confirmed albuterol sulfate 90 mcg/actuation 1 - 2 puffs inhalation Q6HP PRN 09/01/18 06/06/22 aerosol inhaler asthma citalopram 40 mg tablet 40 mg PO DAILY Depression 09/01/18 06/06/22 gabapentin 800 mg tablet 800 mg PO QID back pain 09/01/18 06/06/22 rosuvastatin 10 mg tablet 10 mg PO DAILY Cholesterol #30 tabs 05/03/19 06/06/22 ibuprofen 600 mg tablet PO 01/31/20 06/06/22 mirtazapine 15 mg tablet 15 mg PO DAILY Depression 06/06/22 06/06/22 Previous Rx's Medication Instructions Recorded ondansetron 4 mg d
[2023-09-08 14:02] VITALS: BP 101/76; PULSE 78; RESP 18; TEMP 36.8; O2SAT 100
== END 2023-09-08 15:25 | disposition home or self-care (01) ==
PROVIDERS: Emergency Provider Nurse Practitioner; PCP Internal Medicine Adolescent Medicine
DX: S69.91XA Unspecified injury of right wrist, hand and finger(s), initial encounter (principal); F17.210 Nicotine dependence, cigarettes, uncomplicated; J44.9 Chronic obstructive pulmonary disease, unspecified; F32.A Depression, unspecified; F41.9 Anxiety disorder, unspecified; W23.0XXA Caught, crushed, jammed, or pinched between moving objects, initial encounter; S61.411A Laceration without foreign body of right hand, initial encounter
CPT/HCPCS: 12002; 73130; 99204; 99213; G0463

== ENCOUNTER → 2023-10-24 14:08 | Outpatient (CLI) | payer MEDICARE, SELFPAY ==
--- NOTE | 2023-10-24 14:12 | CT_ITS ---
FINAL REPORT CLINICAL HISTORY: H/O TOBACCO USE 1/2 ppd x 40 years COMPARISON: 09/27/2022 FINDINGS: Axial images were obtained from the lung apex to the mid abdomen by computed tomography. Low-dose protocol was utilized. CTDl vol(mGy): 2.90 DLP (mGy-cm): 109.94 FINDINGS: There is no axillary adenopathy. There is no hilar or mediastinal adenopathy. The heart size is normal. There is no pericardial or pleural effusion. Limited images of the upper abdomen are unremarkable. Lung window images demonstrate previously seen 2 mm nodule in the periphery of the left lower lobe is not seen on today's exam. There is a small density along the course of the left major fissure on image 49. This is stable compared to the prior exam. A 3 mm peripheral nodule in the right midlung on image 67 of series 3 is stable. There is a nodule in the superior right midlung measuring 5 mm on image 57 of series 3 which is stable. No new nodules are identified. There are mild changes of centrilobular emphysema. IMPRESSION: Stable pulmonary nodules with no new nodules identified. Lung RADS category 1. Recommend 12 month follow-up low-dose chest CT. Reviewed, Interpreted and Dictated by Adan Webster MD Transcribed by Marycruz Shook Authenticated and . [facility]
== END ==
LOC: RAD 14:09
PROVIDERS: PCP Internal Medicine Adolescent Medicine; Visit Provider Internal Medicine Adolescent Medicine
DX: Z12.2 Encounter for screening for malignant neoplasm of respiratory organs; Z87.891 Personal history of nicotine dependence
CPT/HCPCS: 71271

== ENCOUNTER 2024-11-04 09:45 | Outpatient (CLI) | payer MEDICARE, SELFPAY ==
--- NOTE | 2024-11-04 09:54 | CT_ITS ---
FINAL REPORT TECHNIQUE: Thin section axial images were obtained through the lungs using a low-dose technique per lung cancer screening protocol. Reconstruction images were obtained using the axial data. Exam was performed using dose reduction technique. CLINICAL HISTORY: .screening, smoker, current smoker, 1/2 ppd x 40 years COMPARISON: 10/24/2023, 09/27/2022 FINDINGS: CTDLvol: 2.9 DLP: 117.24 63-year-old female, current smoker 20 pack year history Lungs: No acute pulmonary abnormality. Changes of emphysema are noted, as well as evidence of prior granulomatous disease. There is a 5 mm left lower lobe nodule seen on image #52, stable. Linear scarring is present in the bilateral lung bases, also stable. There is a stable 3 mm right lower lobe nodule best seen on image #62. There is a small nodule adjacent to the major fissure, also unchanged. Lymph nodes: No thoracic lymphadenopathy. Mediastinum: Heart size is normal. Pleura/pericardium: No pleural or pericardial effusion. Other: No acute abnormality in the upper abdomen. IMPRESSION: Multiple nodules are once again identified, stable when compared to the prior exams of 2021 and 2022. Lung RADS: 1 Recommendation: 12-month follow-up LDCT Reviewed, Interpreted and Dictated by Marleny Chiu MD Transcribed by Cassie Ramos Authenticated and . [facility]
--- NOTE | 2024-11-04 09:54 | MM_ITS ---
PROCEDURE INFORMATION: Exam: MG Bilateral Screening 3D Mammography Exam date and time: 11/04/2024 10:13 AM Age: 63 years old Clinical indication: Screening examination TECHNIQUE: Imaging protocol: Bilateral Screening tomosynthesis and 2D mammography including computer-aided detection (CAD) when performed. COMPARISON: 1. MG MM DIG SCREENING MAMM BI W/CAD 07/11/2023 8:31 AM 2. MG MM DIG SCREENING MAMM BI W/CAD 07/16/2021 4:03 PM FINDINGS: MAMMOGRAPHY: Breast composition: The breasts are extremely dense, which lowers the sensitivity of mammography. Mass: None. Architectural distortion: None. Calcifications: No suspicious calcifications. Asymmetric density: None. Skin thickening: None. Axillary adenopathy: None. IMPRESSION: No mammographic evidence of malignancy. Annual screening is recommended unless otherwise clinically indicated. ASSESSMENT: BI-RADS Category 1: Negative.
== END 2024-11-04 23:59 | disposition home or self-care (01) ==
LOC: RAD 09:46
PROVIDERS: PCP Internal Medicine Adolescent Medicine; Visit Provider Internal Medicine Adolescent Medicine
DX: Z12.31 Encounter for screening mammogram for malignant neoplasm of breast (principal); Z87.891 Personal history of nicotine dependence
CPT/HCPCS: 71271; 77063; 77067

== ENCOUNTER 2025-10-07 07:53 | Outpatient (CLI) | payer MEDICARE, SELFPAY ==
--- NOTE | 2025-10-07 08:02 | CT_ITS ---
FINAL REPORT TECHNIQUE: Thin section axial images were obtained through the lungs using a low-dose technique per lung cancer screening protocol. Reconstruction images were obtained using the axial data. Exam was performed using dose reduction technique. This study was performed with techniques to keep radiation doses as low as reasonably achievable (ALARA). Individualized dose reduction techniques using automated exposure control or adjustment of mA and/or kV according to the patient's size were employed. CLINICAL HISTORY: HX OF NICOTINE. SMOKER 1PPD FOR 35 YEARS. PT HAS HX OF KIDNEY, BLADDER AND MALIGNANT MELANOMA. COMPARISON: 11/04/2024 FINDINGS: CTDLvol: 2.90 DLP: 113.85 Current smoker 35 pack year history Lungs: No acute pulmonary abnormality. There is a 5 mm left lower lobe nodule, best seen on image #50 of series 4, stable. Linear opacities are noted in the lower lobes bilaterally. There is a subpleural 3 mm right lower lobe nodule, seen on image #59 of series 4, stable. A 4 mm nodule remains present in the right minor fissure, image 57 of series 4, stable. Several other stable noncalcified nodules are identified, unchanged. Changes of emphysema are once again noted. There is evidence of prior granulomatous disease. Lymph nodes: No thoracic lymphadenopathy. Mediastinum: Heart size is normal. Pleura/pericardium: No pleural or pericardial effusion. Other: The common bile duct is dilated in the upper abdomen, enlarged slightly since the prior exam. There is also in a prior left nephrectomy. IMPRESSION: Multiple stable bilateral nodules are noted, without new nodules identified. Enlargement of the common bile duct since the prior LDCT, consider MRCP for further evaluation. Lung RADS: 2S, the S designation for multiple nodules. Recommendation: 12-month follow-up LDCT. Reviewed, Interpreted and Dictated by Marleny Chiu MD Transcribed by Cassie Ramos Authenticated and [facility]
== END 2025-10-07 23:59 | disposition home or self-care (01) ==
LOC: RAD 07:54
PROVIDERS: PCP Internal Medicine Adolescent Medicine; Visit Provider Internal Medicine Adolescent Medicine
DX: Z12.2 Encounter for screening for malignant neoplasm of respiratory organs (principal); F17.210 Nicotine dependence, cigarettes, uncomplicated; R91.8 Other nonspecific abnormal finding of lung field; J43.9 Emphysema, unspecified; K83.8 Other specified diseases of biliary tract; Z90.5 Acquired absence of kidney; Z85.820 Personal history of malignant melanoma of skin; Z85.51 Personal history of malignant neoplasm of bladder; Z85.528 Personal history of other malignant neoplasm of kidney
CPT/HCPCS: 71271